=== PATIENT | male | born 1955 | race Caucasian/White ===

== ENCOUNTER 2019-01-13 01:29 | Inpatient (IN) | payer OTHER ==
[~2019-01-13] VITALS: Ht 188 cm; Wt 107.4 kg
[~2019-01-13 01:29] MED LIST: ALBU8.5H8 INH; DOXY100T PO; GUAI5SYR PO; LISI-167 PO; PRED20TA PO; UMEC1DIS INH
[2019-01-13] MEDS ORDERED: FAMOTIDINE 20 MG/2 ML ONE (01:57)
[2019-01-13] MEDS ORDERED: methylPREDNISolone SOD SUCC 125 MG/2 ML ONE (01:57)
[2019-01-13] MEDS ORDERED: DIPHENHYDRAMINE 50 MG/ML, 1ML ONE (01:57)
[2019-01-13] MEDS ORDERED: EPINEPHRINE 1 MG/ML, 1ML ONE (01:57)
[2019-01-13] MEDS ORDERED: FAMOTIDINE 20 MG/2 ML IVPush ONE (02:00)
[2019-01-13] MEDS ORDERED: DIPHENHYDRAMINE 50 MG/ML, 1ML IVPush ONE (02:00)
[2019-01-13] MEDS ORDERED: methylPREDNISolone SOD SUCC 125 MG/2 ML IVPush ONE (02:00)
[2019-01-13] MEDS ORDERED: SODIUM CHLORIDE FLUSH 10ML SYR IVF ONE (02:00)
[2019-01-13] MEDS ORDERED: EPINEPHRINE 1 MG/ML, 1ML SQ ONE (02:00)
[2019-01-13 02:03] LABS: BASOPHILS # (AUTO) 0.02 x10^3/uL (0-0.1); BASOPHILS % (AUTO) 0 % (0-1); EOSINOPHILS # (AUTO) 0.21 x10^3/uL (0-0.4); EOSINOPHILS % (AUTO) 2 % (1-7); LYMPHOCYTES # (AUTO) 2.28 x10^3/uL (1-3.4); LYMPHOCYTES % (AUTO) 21 % (22-44); MD NO; MEAN CORPUSCULAR HEMOGLOBIN 31.9 pg (27.5-34.5); MEAN CORPUSCULAR HGB CONC 34.5 g/dL (33.2-36.2); MEAN CORPUSCULAR VOLUME 92.3 fL (81-97); MEAN PLATELET VOLUME 7.8 fL (7.4-10.4); MONOCYTES # (AUTO) 0.62 x10^3/uL (0.2-0.8); MONOCYTES % (AUTO) 6 % (2-9); NEUTROPHILS # (AUTO) 7.57 x10^3/uL (1.8-6.8); NEUTROPHILS % (AUTO) 71 % (42-75); PLATELET COUNT 243 x10^3/uL (130-400); RED BLOOD COUNT 5.25 x10^6/uL (4.38-5.82); RED CELL DISTRIBUTION WIDTH 13.2 % (9.4-14.8)
--- NOTE | 2019-01-13 02:11 | NUR ---
PT TO ROOM ON MONITOR AND IV STARTED. PT MEDICATED ORDERED.
[2019-01-13 02:14] LABS: ALBUMIN 3.8 g/dL (3.4-5.0); ANION GAP 7 mmol/L (5-15); CALCIUM 8.8 mg/dL (8.5-10.1); CHLORIDE 108 mmol/L (98-107); CREATININE 1.15 mg/dL (0.7-1.3)
--- NOTE | 2019-01-13 03:01 | NUR ---
PT INPROVED WITH REDNESS AND SWELLING LESS. PT AWAITING ADMIT TO FLOOR IN NO DISTRESS AND VSS.
--- NOTE | 2019-01-13 03:08 | NUR ---
REPORT CALLED PT READY TO GO
[2019-01-13] MEDS ORDERED: ACETAMINOPHEN 325 MG TABLET PO PRN (03:30)
[2019-01-13] MEDS: ENOXAPARIN 40 MG/0.4 ML SQ SCH (03:30)
[2019-01-13] MEDS ORDERED: AMLODIPINE 5 MG TABLET PO ONE (03:30)
[2019-01-13] MEDS ORDERED: POLYETHYLENE GLYCOL 17 GM PACKET PO PRN (03:30)
[2019-01-13 03:44] VITALS: BP 117/67
[2019-01-13] MEDS: DEXAMETHASONE 4 MG/ML, 1ML IVPush SCH ×4 (04:14→20:23)
[2019-01-13 04:28] LABS: HEMOGLOBIN A1C 6.6 % (4.2-6.3)
[2019-01-13 07:00] VITALS: BP 163/72
[2019-01-13] MEDS: DIPHENHYDRAMINE 25 MG CAPSULE PO SCH ×3 (08:56→20:23)
[2019-01-13] MEDS: FAMOTIDINE 20 MG/2 ML IVPush SCH ×2 (08:56→20:17)
[2019-01-13] MEDS: AMLODIPINE 5 MG TABLET PO SCH ×2 (08:57→20:23)
[2019-01-13] MEDS: INSULIN LISPRO 100 UNITS/ML, PEN SQ-INSULIN SCH ×4 (09:48→20:23)
[2019-01-13 12:10] VITALS: BP 116/68
[2019-01-13 16:52] LABS: HCT (SEDRATE) 48.4 % (39.2-51.8)
[2019-01-13 18:55] VITALS: BP 118/63
[2019-01-13] MEDS: ALBUTEROL SULFATE 2.5 MG/3 ML NPPB SCH (20:55)
[2019-01-14 00:59] VITALS: BP 134/69
[2019-01-14] MEDS: ENOXAPARIN 40 MG/0.4 ML SQ SCH (03:05)
[2019-01-14] MEDS: DIPHENHYDRAMINE 25 MG CAPSULE PO SCH ×3 (03:28→15:46)
[2019-01-14] MEDS: DEXAMETHASONE 4 MG/ML, 1ML IVPush SCH ×2 (03:29→09:15)
[2019-01-14 05:44] LABS: MEAN CORPUSCULAR HEMOGLOBIN 32.2 pg (27.5-34.5); MEAN CORPUSCULAR VOLUME 94.8 fL (81-97); MEAN PLATELET VOLUME 8.4 fL (7.4-10.4); PLATELET COUNT 241 x10^3/uL (130-400); RED BLOOD COUNT 4.91 x10^6/uL (4.38-5.82); RED CELL DISTRIBUTION WIDTH 13.5 % (9.4-14.8)
[2019-01-14 05:58] LABS: CHLORIDE 109 mmol/L (98-107)
[2019-01-14 06:11] LABS: ALANINE AMINOTRANSFERASE 37 U/L (12-78); ALBUMIN 3.9 g/dL (3.4-5.0); ALKALINE PHOSPHATASE 57 U/L (45-117); ANION GAP 6 mmol/L (5-15); BILIRUBIN,TOTAL 0.7 mg/dL (0.2-1.0); CREATININE 1.05 mg/dL (0.7-1.3); TOTAL PROTEIN 6.5 g/dL (6.4-8.2)
[2019-01-14 06:17] LABS: BASOPHILS # (AUTO) 0.05 x10^3/uL (0-0.1); BASOPHILS % (AUTO) 0 % (0-1); EOSINOPHILS % (AUTO) 0 % (1-7); LYMPHOCYTES # (AUTO) 1.09 x10^3/uL (1-3.4); LYMPHOCYTES % (AUTO) 5 % (22-44); MD SCAN; MONOCYTES # (AUTO) 0.55 x10^3/uL (0.2-0.8); MONOCYTES % (AUTO) 3 % (2-9); NEUTROPHILS # (AUTO) 19.18 x10^3/uL (1.8-6.8); NEUTROPHILS % (AUTO) 92 % (42-75)
[2019-01-14 06:52] VITALS: BP 109/57
[2019-01-14] MEDS: ALBUTEROL SULFATE 2.5 MG/3 ML NPPB SCH (09:00)
[2019-01-14] MEDS: FAMOTIDINE 20 MG/2 ML IVPush SCH (09:14)
[2019-01-14] MEDS: AMLODIPINE 5 MG TABLET PO SCH (09:15)
[2019-01-14] MEDS: INSULIN LISPRO 100 UNITS/ML, PEN SQ-INSULIN SCH ×2 (09:18→12:04)
[2019-01-14 12:09] VITALS: BP 118/60
[2019-01-14 13:21] LABS: MD YES; MEAN CORPUSCULAR HEMOGLOBIN 31.2 pg (27.5-34.5); MEAN CORPUSCULAR HGB CONC 33.3 g/dL (33.2-36.2); MEAN CORPUSCULAR VOLUME 93.9 fL (81-97); MEAN PLATELET VOLUME 8.4 fL (7.4-10.4); PLATELET COUNT 254 x10^3/uL (130-400); RED BLOOD COUNT 5.33 x10^6/uL (4.38-5.82); RED CELL DISTRIBUTION WIDTH 13.6 % (9.4-14.8)
[2019-01-14 13:24] LABS: BAND#(MANUAL) 0.78 x10^3/uL; BANDS%(MANUAL) 3 % (0-7); LYMPHS% (MANUAL) 5 % (22-44); MONOS#(MANUAL) 0.78 x10^3/uL (0.3-2.7); MONOS% (MANUAL) 3 % (2-9); SEG#(MANUAL) 23.14 x10^3/uL (1.8-6.8); SEGS% (MANUAL) 89 % (42-75)
[2019-01-14 13:26] LABS: <PLATELET ESTIMATE> ADEQUATE; <PLT MORPHOLOGY> NORMAL PLT MORPH; <RBC MORPHOLOGY> NORMAL
[2019-01-14] MEDS ORDERED: METH4TAB2 PO (16:10)
[2019-01-14] MEDS ORDERED: FAMO-79 PO (16:10)
[2019-01-14] MEDS ORDERED: AMLO-150 PO (16:10)
== END 2019-01-14 17:10 | disposition home or self-care (01) | DRG 916 ==
LOC: ED 02:22 → EDIP 02:27 → ED 02:32 → 3NE 03:30 → DCLOUNGE 01-14 16:49
PROVIDERS: ADMIT Family Medicine; ATTEND Family Medicine
DX: T78.3XXA Angioneurotic edema, initial encounter (principal); D72.829 Elevated white blood cell count, unspecified; E11.9 Type 2 diabetes mellitus without complications; I10 Essential (primary) hypertension; J44.9 Chronic obstructive pulmonary disease, unspecified; Z88.8 Allergy status to other drugs, medicaments and biological substances; Z79.01 Long term (current) use of anticoagulants
CPT/HCPCS: 36415; 99285; J3490; J7613; 71045; 80048; 80053; 82040; 82962; 83036; 85025; 85651; 86140; 86160; 94640; 96372; 96374; 96375; G0378; J0171; J1100; J1200; J1815; J2930; Q0163